=== PATIENT | female | born 1995 | race Hispanic/Latino ===

== ENCOUNTER 2017-10-06 14:39 | Emergency (ER) | payer SELFPAY ==
[~2017-10-06] VITALS: Ht 167.6 cm; Wt 70.0 kg
[2017-10-06 17:09] VITALS: BP 115/74
== END 2017-10-06 17:10 | disposition home or self-care (01) | DRG 125 ==
LOC: ED 14:39
DX: H11.32 Conjunctival hemorrhage, left eye (principal); R51 Headache; S10.93XA Contusion of unspecified part of neck, initial encounter; S20.311A Abrasion of right front wall of thorax, initial encounter; Y04.8XXA Assault by other bodily force, initial encounter; Y92.009 Unspecified place in unspecified non-institutional (private) residence as the place of occurrence of the external cause